=== PATIENT | female | born 1980 | race Caucasian/White ===

== ENCOUNTER 2019-07-01 | Emergency (ER) | payer SELFPAY ==
[~2019-07-01] MED LIST: AMOX/K CLAV875 M1 PO; AMOXICILLIN/PO500 MG PO; AMOXICILLIN500 MG OR; CEFTAZIDIME1 GM IJ; CLINDAMYCIN IJ; CUBICIN500 MG IV; ERY-TAB333 MG OR; NO HOME MEDS; ROCEPHIN 1 GM1 GM IM
== END 2019-07-01 20:10 | disposition home or self-care (01) | DRG 156 ==
PROC: 09C0XZZ Extirpation of Matter from Right External Ear, External Approach (ICD-10-PCS; principal; 2019-07-01)
DX: T16.1XXA Foreign body in right ear, initial encounter (principal); X58.XXXA Exposure to other specified factors, initial encounter

== ENCOUNTER 2019-08-13 | Emergency (ER) | payer SELFPAY | END 2019-08-13 05:15 | disposition home or self-care (01) | DRG 156 | PROC: 09C4XZZ Extirpation of Matter from Left External Auditory Canal, External Approach (ICD-10-PCS; principal; 2019-08-13) | DX: T16.2XXA Foreign body in left ear, initial encounter (principal); X58.XXXA Exposure to other specified factors, initial encounter ==

== ENCOUNTER 2020-05-03 09:04 | Emergency (ER) | payer SELFPAY ==
[~2020-05-03] VITALS: Ht 152.4 cm; Wt 127.3 kg
[2020-05-03 09:48] LABS: IMMATURE GRANULOCYTES 0.9 % (0.0-5.0); MEAN CORPUSCULAR HGB 30.2 pG CALC (26.0-32.0); MEAN CORPUSCULAR HGB CONC 31.6 g/dL CAL (32.0-36.0); NEUT# 5.82 thou/uL (2.00-7.15); RED BLOOD COUNT 5.17 mill/uL (4.20-5.60); RED CELL DISTRI WIDTH 13.1 % (11.5-15.5)
[2020-05-03 10:08] LABS: ALBUMIN 4.3 g/dL (3.2-5.0); ALKALINE PHOSPHATASE 143 u/l (38-126); ANION GAP 11 (6-22 (CALC)); BUN 11 mg/dL (7-17); BUN/CREATININE RATIO 19 (12-20 (CALC)); CARBON DIOXIDE 28 mmol/l (22-30); CHLORIDE 102 mmol/l (95-108); CREATININE 0.6 mg/dL (0.5-1.0); GFR > 60 ML/MIN (>=60 (CALC)); GFR FOR AFR.AMER. > 60 ML/MIN (>=60 (CALC)); SGOT/AST 84 u/l (14-36); SODIUM 137 mmol/l (137-146); TOTAL PROTEIN 8.5 g/dL (6.3-8.2)
[2020-05-03 10:26] LABS: HEMATOCRIT 49.3 % (37.0-47.0); HEMOGLOBIN 15.6 g/dl (12.0-16.0); MEAN CELL VOLUME 95.4 fL CALC (80.0-100.0)
[2020-05-03] MEDS ORDERED: PREDNISONE50 MG PO (10:35)
[2020-05-03 11:10] VITALS: BP 114/61
== END 2020-05-03 11:10 | disposition home or self-care (01) | DRG 916 ==
LOC: ED 09:04
PROVIDERS: Family Medicine
DX: T78.40XA Allergy, unspecified, initial encounter (principal); E11.9 Type 2 diabetes mellitus without complications; X58.XXXA Exposure to other specified factors, initial encounter
CPT/HCPCS: J0171

== ENCOUNTER 2020-06-13 07:40 | Emergency (ER) | payer SELFPAY ==
[~2020-06-13] VITALS: Ht 160 cm; Wt 125.0 kg
[~2020-06-13 07:40] MED LIST changes: +PREDNISONE50 MG PO
[2020-06-13 08:21] LABS: URINE BILIRUBIN - DIPSTICK NEGATIVE (NEGATIVE); URINE BLOOD DIPSTICK NEGATIVE (NEGATIVE); URINE CLARITY CLEAR; URINE COLOR YELLOW; URINE GLUCOSE - DIPSTICK >=1000 mg/dL (NEGATIVE); URINE KETONE NEGATIVE (NEGATIVE); URINE LEUK ESTERASE NEGATIVE (Negative); URINE NITRITE - DIPSTICK POSITIVE (Negative); URINE PROTEIN - DIPSTICK NEGATIVE (NEG-TRACE); URINE SPECIFIC GRAVITY 1.015; URINE UROBILINOGEN - DIPSTICK 0.2 E.U./dL (0.2)
[2020-06-13 08:22] LABS: HEMATOCRIT 47.1 % (37.0-47.0); HEMOGLOBIN 15.4 g/dl (12.0-16.0); IMMATURE GRANULOCYTES 1.3 % (0.0-5.0); MEAN CELL VOLUME 92.9 fL CALC (80.0-100.0); MEAN CORPUSCULAR HGB 30.4 pG CALC (26.0-32.0); MEAN CORPUSCULAR HGB CONC 32.7 g/dL CAL (32.0-36.0); NEUT# 7.68 thou/uL (2.00-7.15); RED BLOOD COUNT 5.07 mill/uL (4.20-5.60); RED CELL DISTRI WIDTH 12.3 % (11.5-15.5)
[2020-06-13 08:38] LABS: URINE BACTERIA FEW hpf
[2020-06-13 08:39] LABS: ANION GAP 13 (6-22 (CALC)); BUN 7 mg/dL (7-17); BUN/CREATININE RATIO 15 (12-20 (CALC)); CARBON DIOXIDE 29 mmol/l (22-30); CHLORIDE 94 mmol/l (95-108); CREATININE 0.5 mg/dL (0.5-1.0); GFR > 60 ML/MIN (>=60 (CALC)); GFR FOR AFR.AMER. > 60 ML/MIN (>=60 (CALC)); POTASSIUM 4.1 mmol/l (3.5-5.1); SODIUM 132 mmol/l (137-146)
[2020-06-13] MEDS ORDERED: METFORMIN HCL1000 MG PO (09:17)
[2020-06-13] MEDS ORDERED: KEFLEX500 MG PO (09:22)
[2020-06-13 10:08] VITALS: BP 154/77
== END 2020-06-13 09:40 | disposition home or self-care (01) | DRG 696 ==
LOC: ED 07:40
PROVIDERS: Emergency Medicine
DX: R30.0 Dysuria (principal); E11.65 Type 2 diabetes mellitus with hyperglycemia; Z91.14 Patient's other noncompliance with medication regimen; Z79.84 Long term (current) use of oral hypoglycemic drugs

== ENCOUNTER 2023-02-13 14:48 | Emergency (ER) | payer SELFPAY ==
[2023-02-13] VITALS (12 sets, daily range): BP systolic 113–139; BP diastolic 65–84
[~2023-02-13] VITALS: Ht 160 cm; Wt 100.2 kg
[~2023-02-13 14:48] MED LIST changes: +KEFLEX500 MG PO; +METFORMIN HCL1000 MG PO
[2023-02-13 16:13] LABS: BASO% 0.5 % (0-3); EOS% 0.5 % (0-8); IMMATURE GRANULOCYTES 0.2 % (0.0-5.0); MEAN CELL VOLUME 95.9 fL CALC (80.0-100.0); MEAN CORPUSCULAR HGB CONC 32.3 g/dL CAL (32.0-36.0); MONO% 8.1 % (2-13); NEUT# 14.03 thou/uL (2.00-7.15); NEUT% 79.7 % (42-76); RED BLOOD COUNT 4.16 mill/uL (4.20-5.60); RED CELL DISTRI WIDTH 12.2 % (11.5-15.5)
[2023-02-13 16:22] LABS: HEMATOCRIT 39.9 % (37.0-47.0); HEMOGLOBIN 12.9 g/dl (12.0-16.0)
[2023-02-13 16:43] LABS: ALKALINE PHOSPHATASE 97 u/l (38-126); ANION GAP 14 (6-22 (CALC)); BILIRUBIN, TOTAL 1.3 mg/dL (0.02-1.3); BUN 14 mg/dL (7-17); BUN/CREATININE RATIO 23 (12-20 (CALC)); C-REACTIVE PROTEIN 6.6 mg/dL (0-0.9); CARBON DIOXIDE 26 mmol/l (22-30); CHLORIDE 100 mmol/l (95-108); CREATININE 0.6 mg/dL (0.5-1.0); GFR FOR AFR.AMER. > 60 ML/MIN (>=60 (CALC)); GFR OTHER RACES > 60 ML/MIN (>=60 (CALC)); POTASSIUM 3.6 mmol/l (3.5-5.1); SGOT/AST 40 u/l (14-36); SODIUM 137 mmol/l (137-146); TOTAL PROTEIN 7.8 g/dL (6.3-8.2)
== END 2023-02-13 22:15 | disposition left against medical advice (07) | DRG 153 ==
LOC: ED 14:48
PROVIDERS: Nurse Practitioner
DX: J36 Peritonsillar abscess (principal); E11.9 Type 2 diabetes mellitus without complications; Z20.822 Contact with and (suspected) exposure to COVID-19; Z53.29 Procedure and treatment not carried out because of patient's decision for other reasons
CPT/HCPCS: Q9967